=== PATIENT | male | born 1945 | race Caucasian/White ===

== ENCOUNTER 2017-03-23 12:43 | Emergency (ER) | payer OTHER, BC ==
[2017-03-23 13:20] LABS: ADD MAN DIFF? NO
[2017-03-23 13:22] LABS: ABNORMAL IP MESSAGE 1; BASOPHILS % 0.4 % (0.0-2.0); EOSINOPHILS # 0.1 10^3/ul (0.0-0.5); EOSINOPHILS % 1.4 % (0.0-7.0); LYMPHOCYTES % 17.7 % (15.0-51.0); MEAN CORPUSCULAR HEMOGLOBIN 30.7 pg (29.0-33.0); MEAN CORPUSCULAR HGB CONC 31.4 g/dl (32.0-37.0); MEAN CORPUSCULAR VOLUME 97.7 fl (82.0-101.0); MEAN PLATELET VOLUME 12.2 fl (7.4-10.4); MONOCYTE # 0.6 10^3/ul (0.3-0.9); NEUTROPHIL # 3.8 10^3/ul (1.6-7.5); NUCLEATED RED BLOOD CELLS # 0.1 10^3/ul (0.0-0.0); NUCLEATED RED BLOOD CELLS% 1.8 /100WBC (0.0-0.0); PLATELET COUNT 180 10^3/UL (140-415); POSITIVE DIFF @See below; RED BLOOD COUNT 2.15 10^6/ul (4.70-6.10)
[2017-03-23 13:22] LABS: WHITE BLOOD COUNT 5.6 10^3/ul (4.8-10.8)
[2017-03-23 13:26] LABS: HEMOGLOBIN 6.6 g/dl (14.0-18.0); PATH REVIEW? YES
[2017-03-23] MEDS: SOD CHLORIDE 0.9% 250 ML IV (13:26)
[2017-03-23 13:52] LABS: ANION GAP 14 (8-16); BLOOD UREA NITROGEN 20 mg/dl (7-20); CALCIUM 9.2 mg/dl (8.4-10.2); CARBON DIOXIDE 25 mmol/L (21-31); CHLORIDE 106 mmol/L (97-110); CREATININE 1.36 mg/dl (0.61-1.24); GLUCOSE 117 mg/dl (70-220); SODIUM 141 mmol/L (135-144)
[2017-03-23 15:40] LABS: TROPONIN-I < 0.012 ng/ml (0.00-0.12)
[2017-03-23] MEDS: PANTOPRAZOLE 40 MG INJ IV (16:00)
[2017-03-23 17:22] LABS: HEMATOCRIT 22.2 % (42.0-52.0)
[2017-03-23 19:45] LABS: IMMEDIATE SPIN CROSSMATCH 1 2
[2017-03-23 23:33] LABS: ADD MAN DIFF? NO
[2017-03-23 23:35] LABS: BASOPHILS % 0.7 % (0.0-2.0); EOSINOPHILS # 0.3 10^3/ul (0.0-0.5); EOSINOPHILS % 4.2 % (0.0-7.0); LYMPHOCYTES # 1.7 10^3/ul (0.8-2.9); LYMPHOCYTES % 28.7 % (15.0-51.0); MEAN CORPUSCULAR HEMOGLOBIN 30.1 pg (29.0-33.0); MEAN PLATELET VOLUME 12.7 fl (7.4-10.4); MONOCYTE # 0.7 10^3/ul (0.3-0.9); MONOCYTES % 11.4 % (0.0-11.0); NEUTROPHIL # 3.3 10^3/ul (1.6-7.5); NEUTROPHILS % 54.7 % (39.0-77.0); NUCLEATED RED BLOOD CELLS # 0.1 10^3/ul (0.0-0.0); PLATELET COUNT 182 10^3/UL (140-415); RED BLOOD COUNT 2.66 10^6/ul (4.70-6.10)
[2017-03-24 16:58] LABS: PATH REVIEW CH
== END 2017-03-24 02:04 | disposition home or self-care (01) ==
LOC: E/R 03-24 01:30
DX: D59.1 Other autoimmune hemolytic anemias (principal); I10 Essential (primary) hypertension; R40.2142 Coma scale, eyes open, spontaneous, at arrival to emergency department; R40.2362 Coma scale, best motor response, obeys commands, at arrival to emergency department; R40.2252 Coma scale, best verbal response, oriented, at arrival to emergency department; Z79.82 Long term (current) use of aspirin
CPT/HCPCS: 36430; 80048; 84484; 85014; 85018; 85025; 86850; 86900; 86901; 86920; 93005; 96374; 99285-25